=== PATIENT | female | born 1985 | race Caucasian/White ===

== ENCOUNTER 2016-08-16 10:13 | Emergency (ER) | payer SELFPAY ==
--- NOTE | 2016-08-16 10:33 | ER Document Report ---
ED Medical Screen (RME) - General Stated Complaint: SIDE PAIN Notes: 31 yo female c/o RUQ pain radiating to back x 5 days. + nausea, worse with eating. no fever. - Related Data Allergies/Adverse Reactions: No Known Allergies Allergy (Unverified 08/16/16 10:31) Physical Exam - Vital signs Vitals: Temp Pulse Resp BP Pulse Ox 98.1 F 80 18 132/75 H 100 08/16/16 10:30 08/16/16 10:30 08/16/16 10:30 08/16/16 10:30 08/16/16 10:30 Course - Vital Signs Vital signs: Temp Pulse Resp BP Pulse Ox 98.1 F 80 18 132/75 H 100 08/16/16 10:30 08/16/16 10:30 08/16/16 10:30 08/16/16 10:30 08/16/16 10:30
[2016-08-16 11:26] LABS: HEMOGLOBIN 13.5 g/dL (12.0-15.5); HGB HCT DIFFERENCE 0.5; MEAN CORPUSCULAR HEMOGLOBIN 29.5 pg (27.0-33.4); MEAN CORPUSCULAR HGB CONC 33.7 g/dL (32.0-36.0); MEAN CORPUSCULAR VOLUME 88 fl (80-97); RED BLOOD COUNT 4.56 10^6/uL (3.72-5.28); RED CELL DISTRIBUTION WIDTH 12.9 % (11.5-14.0); WHITE BLOOD COUNT 7.5 10^3/uL (4.0-10.5)
[2016-08-16 11:31] LABS: APPEARANCE,URINE CLEAR; BILIRUBIN,URINE NEGATIVE (NEGATIVE); GLUCOSE, URINE NEGATIVE (NEGATIVE); KETONES,URINE NEGATIVE (NEGATIVE); LEUKOCYTE ESTERASE,URINE NEGATIVE (NEGATIVE); NITRITE,URINE NEGATIVE (NEGATIVE); PROTEIN,URINE NEGATIVE (NEGATIVE); URINE SPECIFIC GRAVITY 1.006; UROBILINOGEN,URINE NEGATIVE mg/dL (<2.0)
--- NOTE | 2016-08-16 11:35 | ER Document Report ---
ED GI/ - General Chief Complaint: Abdominal Pain Stated Complaint: SIDE PAIN Time seen by provider: 11:25 Mode of Arrival: Ambulatory Information source: Patient, [facility] Records Notes: This 31-year-old female patient comes emergency room with a five-day history of right upper quadrant abdominal pain going into the back. 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 It seems to be made worse after she eats. Also notices an increase in acid reflux recently. She reports she has had some problems with acid reflux since the of her last child. She also notices his symptoms are worse when she is laying down flat. TRAVEL OUTSIDE OF THE [place] IN LAST 30 DAYS: No - Related Data Allergies/Adverse Reactions: No Known Allergies Allergy (Unverified 08/16/16 10:31) Past Medical History - General Information source: Patient, [facility] Records - Social History Smoking Status: Current Every Day Smoker Cigarette use (# per day): No - smokes vapor cigarettes Chew tobacco use (# tins/day): No Smoking Education Provided: No Frequency of alcohol use: None Drug Abuse: None Occupation: unemployed Lives with: Family Family History: Reviewed & Not Pertinent Patient has suicidal ideation: No Patient has homicidal ideation: No - Medical History Medical History: Negative Past Surgical History: Reports: Hx Section Review of Systems - Review of Systems Constitutional: No symptoms reported EENT: No symptoms reported Cardiovascular: No symptoms reported Respiratory: No symptoms reported Gastrointestinal: See HPI Genitourinary: No symptoms reported Female Genitourinary: Last menstrual period - Now, normal and on time Musculoskeletal: No symptoms reported Skin: No symptoms reported Hematologic/Lymphatic: No symptoms reported Neurological/Psychological: No symptoms reported Physical Exam - Vital signs Vitals: Temp Pulse Resp BP Pulse Ox 98.1 F 80 18 132/75 H 100 08/16/16 10:30 08/16/16 10:30 08/16/16 10:30 08/16/16 10:30 08/16/16 10:30 Interpretation: Normal - General General appearance: Appears well, Alert In distress: None - HEENT Head: Normocephalic, Atraumatic Eyes: Normal Pupils: PERRL Neck: Normal - Respiratory Respiratory status: No respiratory distress - Cardiovascular Rhythm: Regular - Abdominal Inspection: Obese Bowel sounds: Normal Tenderness: Other - There is minimal tenderness in the right upper quadrant epigastric region at this time. - Extremities General upper extremity: Normal inspection General lower extremity: Normal inspection - Neurological Neuro grossly intact: Yes - Psychological Associated symptoms: Normal affect, Normal mood - Skin Skin Temperature: Warm Skin Moisture: Dry Skin Color: Normal Course - Vital Signs Vital signs: Temp Pulse Resp BP Pulse Ox 98.1 F 80 18 132/75 H 100 08/16/16 10:30 08/16/16 10:30 08/16/16 10:30 08/16/16 10:30 08/16/16 10:30 - Laboratory Result Diagrams: 08/16/16 11:00 08/16/16 11:00 Laboratory results interpreted by me: 08/16/16 11:00 Carbon Dioxide 31 H AST 44 H ALT 82 H - Diagnostic Test Radiology reviewed: Image reviewed, Reports reviewed - Normal gallbladder ultrasound Discharge - Discharge Clinical Impression: Intermittent right upper quadrant abdominal pain Gastroesophageal reflux Qualifiers: Esophagitis presence: esophagitis presence not specified Qualified Code(s): K21.9 - Gastro-esophageal reflux disease without esophagitis Condition: Stable Disposition: HOME, SELF-CARE Additional Instructions: Reflux Disease (GERD): Gastro-Esophageal Reflux Disease (GERD) is caused by stomach acid refluxing back up into the esophagus. The valve at the end of the esophagus may be weak. This is common in persons with a hiatal hernia. GERD symptoms can include indigestion, chest pain, heartburn, or food "sticking." Certain foods, alcohol, and aspirin can make GERD worse. Treatment depends on the severity. Usually, antacids or acid-suppressing medicines are used. When the esophagus is acutely inflamed, the physician will often prescribe membrane-protective drugs such as Carafate. Some patients benefit from medication such as Reglan that tightens the valve at the top of the stomach. Avoid those foods that bring on your symptoms. For many people, these foods are coffee, chocolate, onions, garlic, and carbonated drinks. Don't use alcohol, aspirin, caffeine, or tobacco. Don't eat late at night -- within 4 hours of bedtime. Don't over-eat. If necessary, elevate the head of your bed about 4 inches so that stomach acid will not roll up into your esophagus. Call the doctor if you develop severe chest pain, inability to swallow fluids, fever, or worsening symptoms. EAT A BLAND DIET. AVOID SPICY, GREASY AND ACIDIC FOODS AND FLUIDS. DO NOT EAT WITHIN A FEW HOURS OF LAYING DOWN AT NIGHT. TAKE PRILOSEC OTC DAILY. TAKE ANTI-ACIDS BETWEEN MEALS AND AT BEDTIME. FOLLOW UP WITH A LOCAL MEDICAL DOCTOR IF NOT IMPROVING.
[2016-08-16 11:36] LABS: ALANINE AMINOTRANSFERASE 82 U/L (9-52); ALBUMIN 4.3 g/dL (3.5-5.0); ALKALINE PHOSPHATASE 70 U/L (38-126); ANION GAP 8 (5-19); ASPARTATE AMINO TRANSFERASE 44 U/L (14-36); BILIRUBIN,TOTAL 0.5 mg/dL (0.2-1.3); BLOOD UREA NITROGEN 14 mg/dL (7-20); CALCIUM 10.2 mg/dL (8.4-10.2); CARBON DIOXIDE 31 mmol/L (22-30); CHLORIDE 103 mmol/L (98-107); CREATININE RESULT 0.74 mg/dL (0.52-1.25); GLUCOSE 79 mg/dL (75-110); LIPASE 48.7 U/L (23-300); POTASSIUM 4.1 mmol/L (3.6-5.0); SODIUM 141.8 mmol/L (137-145); TOTAL PROTEIN 7.6 g/dL (6.3-8.2)
[2016-08-16 11:53] LABS: BASOPHILS % (MANUAL) 0 % (0-2); EOSINOPHILS % (MANUAL) 2 % (0-6); LYMPHOCYTES % (MANUAL) 34 % (13-45); RBC MORPHOLOGY COMMENT NORMO-CYTIC/CHROMIC; TOTAL CELLS COUNTED 100
[2016-08-16 11:54] LABS: PLATELET CLUMPS PRESENT
[2016-08-16 13:58] VITALS: BP 130/70
== END 2016-08-16 13:30 | disposition home or self-care (01) ==
LOC: ER 10:13
DX: K21.9 Gastro-esophageal reflux disease without esophagitis (principal); R10.11 Right upper quadrant pain; R10.9 Unspecified abdominal pain; F17.210 Nicotine dependence, cigarettes, uncomplicated
CPT/HCPCS: 36415; 76705; 80053; 81001; 83690; 85025; 99284